=== PATIENT | female | born 1965 | race Caucasian/White ===

== ENCOUNTER → 2017-10-14 | Outpatient (CLI) | payer BC ==
[~2017-10-14] MED LIST: DOBUTAMINE IV ONE
--- NOTE | 2017-10-15 14:00 | RADIOLOGY IMAGING REPORT ---
FACILITY: [facility] - [place] PATIENT NAME: ENEIDA MATHEW : [id number] MR: [id number] V: [id number] EXAM DATE: [id number] ORDERING PHYSICIAN: BILL OLSEN TECHNOLOGIST: Monica Laird PROCEDURE:BILATERAL DIGITAL SCREENING MAMMOGRAM WITH CAD ASSISTED INTERPRETATION & 3D TOMOSYNTHESIS COMPARISON:Mammograms 09/11/2015 & 02/08/2014 INDICATIONS:SCREENING TECHNIQUE: MLO & CC views as well as pushback implant views were obtained of both breasts. This examination was reviewed with the aid of CAD. Breast tissue demonstrates predominantly fatty attenuation. FINDINGS: Right & left breast implants are intact. There is no suspicious mass, calcification or architectural distortion. DIAGNOSTIC CATEGORY 2--BENIGN FINDING. RECOMMENDATIONS: ROUTINE YEARLY SCREENING MAMMOGRAM AND CLINICAL EVALUATION. IMPRESSION: BIRADS 2: Benign finding No mammographic evidence for malignancy. Dictated by: Joe Sifuentes M.D. on 10/15/2017 at 12:13 Transcribed by: LILLIE on 10/15/2017 at 13:19 Approved by: Joe Sifuentes M.D. on 10/15/2017 at 13:59 [facility]
== END ==
LOC: MAMO 10-09 14:47
PROVIDERS: ATTEND Nurse Practitioner Family
DX: Z12.31 Encounter for screening mammogram for malignant neoplasm of breast (principal); Z98.82 Breast implant status
CPT/HCPCS: 77063; 77067

== ENCOUNTER 2017-12-02 00:28 | Day surgery (SDC) | payer BC ==
[~2017-12-02] VITALS: Ht 160 cm; Wt 63.5 kg
[~2017-12-02 00:28] MED LIST changes: +ASCO-182 PO; +ASCO1CAP7 PO; +CHOL100058 PO; +CITA-139 PO; -DOBUTAMINE IV ONE; +FISH1CAP15 PO; +FLUT1BLS5 INH; +GREE1CAP5 PO; +LEVO5TAB28 PO
[2017-12-02 06:45] VITALS: BP 137/88
[2017-12-02] MEDS ORDERED: LIDOCAINE/SOD BICARB 8.4% SYR ID ONE (07:00)
[2017-12-02] MEDS ORDERED: NORMOSOL R SOLN(*) 1000 ML BAG 1,000 ML IV PRN (07:00)
[2017-12-02 08:26] VITALS: BP 97/67
--- NOTE | 2017-12-02 08:30 | Short(Outpt) Discharge Summary ---
Discharge Summary Reason for Hosp/Final Diag: (1) Colon cancer screening Status: Chronic Hospital Course & Plan: Colonoscopy completed without problems. Departure Discharge to: Home, Self Care Discharge Instructions Home Meds Reported Medications Levocetirizine (XYZAL) 5 Mg Tab, 5 MG PO QDAY, TAB 11/25/17 Green Tea Datto Extract (GREEN TEA) 1 Each Capsule, 1 EACH PO QDAY, CAPSULE 10/28/17 Ascorbic Acid/Collagen Hydr (COLLAGEN PLUS VIT C CAPSULE) 1 Each Capsule, 1 EACH PO QDAY, CAPSULE 10/28/17 Fish Oil/Dha/Epa (FISH OIL 1,200 MG FISH OIL) 1 Each Capsule, 1 EACH PO QDAY, CAPSULE 10/28/17 Cholecalciferol (Vitamin D3) (VITAMIN D) 1,000 Unit Capsule, 1000 UNIT PO QDAY, CAPSULE 10/28/17 Ascorbic Acid (VITAMIN C) 500 Mg Tablet, 500 MG PO QDAY, TAB 10/28/17 Citalopram Hydrobromide (CITALOPRAM HBR) 20 Mg Tablet, 20 MG PO QDAY, #5 TAB 10/28/17 Fluticasone/Umeclidin/Vilanter (Trelegy Ellipta 100-62.5-25) 100-62.5 Blst.w.dev , 1 PUFF INH QDAY 10/26/17 Diet: Regular Activity: As Tolerated Special Instructions: Your colonoscopy was completed without any problems and your prep was excellent (Good Job!!). I didn't find any polyps, cancers, or other abnormalities. I recommend that your next colonoscopy be in 10 years for screening. LEXUS JIMENEZ MD Dec 02, 2017 08:30
[2017-12-02 08:36] VITALS: BP 98/63
[2017-12-02] MEDS ORDERED: PROPOFOL EMUL(*) 10MG/ML 20 ML 40 ML ONE (08:51)
[2017-12-02] MEDS ORDERED: LIDOCAINE MPF 1% 5 ML VIAL ONE (08:51)
[2017-12-02 09:16] VITALS: BP 118/82
[2017-12-02 09:17] VITALS: BP 125/88
== END 2017-12-02 10:15 | disposition home or self-care (01) ==
LOC: OR 00:28
PROVIDERS: ATTEND Surgery
DX: Z12.11 Encounter for screening for malignant neoplasm of colon (principal)
CPT/HCPCS: 00812; 45378; J2001; J2704

== ENCOUNTER → 2018-11-12 | Outpatient (CLI) | payer BC ==
[~2018-11-12] MED LIST changes: -CITA-139 PO; +CITA-145 PO
--- NOTE | 2018-11-15 09:53 | RADIOLOGY IMAGING REPORT ---
FACILITY: [facility] - [place] PATIENT NAME: ENEIDA MATHEW : [id number] MR: [id number] V: [id number] EXAM DATE: [id number] ORDERING PHYSICIAN: BILL OLSEN TECHNOLOGIST: Maggy Styles PROCEDURE:BILATERAL DIGITAL SCREENING MAMMOGRAM WITH CAD ASSISTED INTERPRETATION & 3D TOMOSYNTHESIS COMPARISON:Prior mammograms 10/14/17, 09/11/15, 02/08/14. INDICATIONS:screening FINDINGS: There are scattered areas of fibroglandular density seen throughout the breasts. There are bilateral subpectoral breast implants in place. There is no evidence of implant rupture or leakage. The parenchymal pattern has remained stable allowing for difference in mammographic technique & patient positioning. DIAGNOSTIC CATEGORY 2--BENIGN FINDING. RECOMMENDATIONS: ROUTINE MAMMOGRAM AND CLINICAL EVALUATION. IMPRESSION: BIRADS 2: Benign finding. No significant abnormality is seen. Dictated by: Rebecca Terry M.D. on 11/12/2018 at 15:26 Transcribed by: IGLESIA on 11/12/2018 at 15:50 Approved by: Rebecca Terry M.D. on 11/15/2018 at 9:52 [facility]
== END ==
LOC: MAMO 02:00
PROVIDERS: ATTEND Nurse Practitioner Family
DX: Z12.31 Encounter for screening mammogram for malignant neoplasm of breast (principal)
CPT/HCPCS: 77063; 77067